=== PATIENT | female | born 1980 | race Caucasian/White ===

== ENCOUNTER 2017-12-21 15:02 | Emergency (ER) | payer OTHER ==
[~2017-12-21] VITALS: Ht 172.7 cm; Wt 72.0 kg
[2017-12-21 15:43] LABS: APPEARANCE CLEAR ((CLEAR)); BILIRUBIN NEGATIVE; BLOOD NEGATIVE; COLOR STRAW ((YELLOW)); GLUCOSE (STRIP) NEGATIVE; KETONES NEGATIVE; LEUKOCYTES NEGATIVE; NITRITE NEGATIVE; PROTEIN (STRIP) NEGATIVE; SPECIFIC GRAVITY 1.016 (1.000-1.030); UCUL ADDED? NO; UROBILINOGEN 0.2 MG/DL (0.2-1.0)
[2017-12-21 15:50] LABS: THC CANNABINOIDS NEGATIVE (50 ng/mL)
[2017-12-21 15:51] LABS: AMPHETAMINE NEGATIVE (500 ng/mL); BARBITURATES NEGATIVE (200 ng/mL); BENZODIAZEPINES NEGATIVE (150 ng/mL); BUPRENORPHINE NEGATIVE (10 ng/mL); COCAINE NEGATIVE (150 ng/mL); METHADONE NEGATIVE (200 ng/mL); METHAMPHETAMINE NEGATIVE (500 ng/mL); OPIATES (MORPHINE) NEGATIVE (100 ng/mL); OXYCODONE NEGATIVE (100 ng/mL); PHENCYCLIDINE NEGATIVE (25 ng/mL); PROPOXYPHENE NEGATIVE (300 ng/mL); TRICYCLIC ANTIDEPRESSANTS NEGATIVE (300 ng/mL)
[2017-12-21 15:59] LABS: HEMATOCRIT 39.5 % (36.0-46.0); HEMOGLOBIN 13.4 G/DL (11.9-15.5); MCH 30.3 PG (29.0-34.0); MCHC 33.9 G/DL (30.0-36.0); MCV 89.4 FL (83-99); PLATELET COUNT 265 K/uL (156-360); RBC DIS.WIDTH-CV 13.3 % (11.8-14.6); RBC DIS.WIDTH-SD 43.9 % (39-53); RED BLOOD COUNT 4.42 M/uL (3.80-5.20); WHITE BLOOD COUNT 12.2 K/uL (4.1-10.2)
[2017-12-21 16:13] LABS: ALBUMIN 4.3 g/dL (3.2-4.8)
[2017-12-21 16:14] LABS: CHLORIDE 107 mEq/L (99-109); POTASSIUM 4.2 mEq/L (3.7-5.4); SODIUM 141 mEq/L (136-147)
[2017-12-21 16:16] LABS: GLUCOSE 93 mg/dL (70-99); TOTAL PROTEIN 7.7 g/dL (6.4-8.3)
[2017-12-21 16:18] LABS: TOTAL BILIRUBIN 0.6 mg/dL (0.0-1.0)
[2017-12-21 16:19] LABS: ALKALINE PHOSPHATASE 92 IU/L (3-129); SERUM ETHYL ALCOHOL < 10 mg/dL
[2017-12-21 16:20] LABS: CREATININE 0.7 mg/dL (0.6-1.3)
[2017-12-21 16:21] LABS: AST (GOT) 19 IU/L (2-34); UREA NITROGEN (BUN) 12 mg/dL (9-23)
[2017-12-21 16:23] LABS: ACETAMINOPHEN (TYLENOL) < 10 mcg/mL (10-30); ALT (GPT) 16 IU/L (3-49); LIPASE 38 U/L (1.0-51.0)
[2017-12-21 16:24] LABS: GFR ESTIMATE (CALCULATED) > 59 mL/min/
[2017-12-21 16:29] LABS: QUANTITATIVE HCG < 4.0 MIU/ML
[2017-12-21 18:01] VITALS: BP 130/88
== END 2017-12-21 18:01 | disposition home or self-care (01) ==
LOC: EME 15:02
PROVIDERS: Physician Assistant
DX: F10.20 Alcohol dependence, uncomplicated (principal); Z04.6 Encounter for general psychiatric examination, requested by authority; F17.200 Nicotine dependence, unspecified, uncomplicated; Z91.048 Other nonmedicinal substance allergy status
CPT/HCPCS: 80053; 81003; 83690; 84702; 85027; 90837; G0480